=== PATIENT | male | born 1975 | race Caucasian/White ===

== ENCOUNTER 2025-01-17 00:39 | Day surgery (SDC) | payer BC, SELFPAY ==
[2025-01-01 14:59] VITALS: BMI 34.1
--- OUTSIDE RECORDS SUMMARY | 2025-01-17 00:42 | XMS_ITS | Clinical Summary ---
Author Organization [facility] Address [facility] [place] [address] Care Team Providers Care Wire Spiral Binder Name Role Phone Unavailable Primary Care Provider Unavailabl e Social History Tobacco Use Types Packs/Day Years Used Date Smoking Tobacco: Never Assessed Sex and Gender Information Value Date Recorded Sex Assigned at Not on file Legal Sex Male 9:55 PM [employer] Gender Identity Not on file Sexual Orientation Not on file Plan of Treatment Health Maintenance Due Date Last Done Comments Colorectal Cancer Screening Colonoscopy (10 Years) 1977 Annual Physical 1980 Hepatitis C 1995 DTaP, Tdap and Td Vaccines ( 1 - Tdap) 1996 Hepatitis B Vaccines (1 of 3 - 19+ 3-dose series) 1996 COVID-19 Vaccine (2023-2 5 season) 2024 Meningococcal B Vaccine Aged Out No l onger eligible based on patient's age to complete this topic Meningococcal Vaccine Aged Out No jody lorena eligible based on patient's age to complete this topic Pneumococcal Vaccine: Pediat rics (0 to 5 Years) and At-Risk Patients (6 to 49 Years) Aged Out No longer eligible b ased on patient's age to complete this topic RSV Immunizations Under 20 Months Aged Out No longer eligible based on patient's age to complete this topic
[2025-01-17 06:39] VITALS: BP 116/74; PULSE 62; RESP 20; TEMP 36.1; O2SAT 100
[2025-01-17 07:03] LABS: Glucose Point of Care 231 mg/dl (65-105)
[2025-01-17] MEDS: LACTATED RINGERS 1,000 ML 150 ML IV CONT (07:04)
--- NOTE | 2025-01-17 07:30 | WPDANESEPPF ---
Anes - Initial Pre Proc Eval Procedure: Operation Date: 01/17/25 08:00 Proposed Procedures p Screening Colonoscopy - Patricio Rolle MD Date/Time: 01/17/25 07:30 Surgeon: Patricio Rolle MD Pre Op Diagnosis: Screening Patient Data Age: 49 Gender: M Height: 1.93 m Weight: 123.4 kg Last Vital Signs Temp 97 F L 01/17/25 06:39 Pulse 62 01/17/25 06:39 Resp 20 01/17/25 06:39 BP 116/74 01/17/25 06:39 Pulse Ox 100 01/17/25 06:39 O2 Del Method Room Air 01/17/25 06:39 Allergies Allergy/AdvReac Type Severity Reaction Status Date / Time No Known Allergies Allergy Verified 01/17/25 06:37 Home Medications ?Medication ?Instructions ?Recorded ?Confirmed ?Type blood-glucose sensor (Dexcom G7 #3 ea 10/11/24 10/11/24 Rx Sensor device) insulin degludec 200 unit/mL (3 50 unit (0.25 mL) subcut DAILY #72 10/11/24 01/17/25 Rx mL) subcutaneous pen (Tresiba mL FlexTouch U-200 insulin) lisinopril 10 mg tablet See Rx Instructions .Route 10/11/24 01/17/25 Rx .COMPLEX #90 tabs pen needle, diabetic 31 gauge x #100 ea 10/11/24 10/11/24 Rx 5/16 (BD Ultra-Fine Short Pen Needle) ezetimibe 10 mg-simvastatin 40 mg 1 tablet PO DAILY #90 tabs 11/08/24 01/17/25 Rx tablet (Vytorin) glucagon 1 mg solution for 1 mg subcut Q20M PRN hypoglycemia 11/14/24 01/01/25 Rx injection (Glucagon Emergency Kit) #1 ea insulin aspart U-100 100 unit/mL 30 unit (0.3 mL) subcut TID 1 12/24/24 01/17/25 Rx (3 mL) subcutaneous pen month #27 mL semaglutide (weight loss) 1 mg/0.5 1 mg (0.5 mL) subcut WEEKLY #2 mL 01/02/25 01/17/25 Rx mL subcutaneous pen injector (Wegovy) albuterol sulfate 90 mcg/actuation See Rx Instructions .Route 01/06/25 01/17/25 Rx aerosol inhaler .COMPLEX #8.5 grams Laboratory Tests 01/17/25 06:54 POC Capillary Glucose 231 H mg/dl (65-105) Patient hx anesthesia problems: none Family hx anesthesia problems: none Results Review: All pre-operative results and documents have been reviewed as part of the pre-operative evaluation. [facility] Past Medical History Medical History (Updated 10/11/24 @ 13:08 by Marta Zapata PA-C) Uncomplicated asthma Hyperlipidemia, unspecified Type 1 diabetes mellitus without complications Essential (primary) hypertension Family History Family History Father Diabetes mellitus Mother No problems noted. Grandparent Emphysema lung Congestive heart failure Manic depressive disorder Heart disease Cancer Social History Social History Smoking status: Never smoker Smokeless tobacco user: chewing tobacco Alcohol intake: current Drinks per week: 8 Substance use: never Substance use type: does not use Lack of Transportation: No Lack of Food: Never True Current Housing: I Have Housing Concerned About Future Housing: No Difficulty Paying Gas/Electric Bills: No Difficulty Paying for Meds: No Currently Unemployed: No Education: Bachelor's Degree Difficulty w/ Childcare or Family Care: No Living arrangements: with family Occupation/Education: occupation Gender identity (if verbalized by the patient): Male Sexual Orientation (if Verbalized by the Patient): Straight or Heterosexual Spiritual care concerns: No Anes - Eval Final PreProcedure Day of Procedure 01/17/25 07:30 Patient weight: obese Heart: regular rate and rhythm Lungs: clear to auscultation Airway: Mallampati scale class II Neurological: alert and oriented Last oral intake: >/= 8 hours ASA classification: III Emergent: no Anesthetic plan: proceed Anesthesia type and monitoring: general GIVS and standard monitoring Results Review: All pre-operative results and documents have been reviewed as part of the pre-operative evaluation. Informed Consent: The patient's anesthetic plan and its attendant risks and benefits were discussed with the patient/family/POA. Questions were solicited and answers provided to the satisfaction of the patient/family/POA.
--- NOTE | 2025-01-17 07:47 | PM.HPGS ---
History of Present Illness History of Present Illness Consent: Risks, benefits, and alternatives have been discussed and questions answered. Patient agrees to proceed with procedure. Chief complaint: Screening Narrative: Av Cueva is a 49 year old male here for screening colonoscopy, had one about 12 years ago Review of Systems Review of Systems: All systems reviewed & are unremarkable except as noted in HPI and below PMFSH Past Medical History Medical History (Updated 01/17/25 @ 07:47 by Patricio Rolle MD) Colon cancer screening Uncomplicated asthma Hyperlipidemia, unspecified Type 1 diabetes mellitus without complications Essential (primary) hypertension Family History Family History Father Diabetes mellitus Mother No problems noted. Grandparent Emphysema lung Congestive heart failure Manic depressive disorder Heart disease Cancer Social History Social History Smoking status: Never smoker Smokeless tobacco user: chewing tobacco Alcohol intake: current Drinks per week: 8 Substance use: never Substance use type: does not use Lack of Transportation: No Lack of Food: Never True Current Housing: I Have Housing Concerned About Future Housing: No Difficulty Paying Gas/Electric Bills: No Difficulty Paying for Meds: No Currently Unemployed: No Education: Bachelor's Degree Difficulty w/ Childcare or Family Care: No Living arrangements: with family Occupation/Education: occupation Gender identity (if verbalized by the patient): Male Sexual Orientation (if Verbalized by the Patient): Straight or Heterosexual Spiritual care concerns: No Meds Home Medications and Allergies Home Medications ?Medication ?Instructions ?Recorded ?Confirmed ?Type blood-glucose sensor (Dexcom G7 #3 ea 10/11/24 10/11/24 Rx Sensor device) insulin degludec 200 unit/mL (3 50 unit (0.25 mL) subcut DAILY #72 10/11/24 01/17/25 Rx mL) subcutaneous pen (Tresiba mL FlexTouch U-200 insulin) lisinopril 10 mg tablet See Rx Instructions .Route 10/11/24 01/17/25 Rx .COMPLEX #90 tabs pen needle, diabetic 31 gauge x #100 ea 10/11/24 10/11/24 Rx 5/16 (BD Ultra-Fine Short Pen Needle) ezetimibe 10 mg-simvastatin 40 mg 1 tablet PO DAILY #90 tabs 11/08/24 01/17/25 Rx tablet (Vytorin) glucagon 1 mg solution for 1 mg subcut Q20M PRN hypoglycemia 11/14/24 01/01/25 Rx injection (Glucagon Emergency Kit) #1 ea insulin aspart U-100 100 unit/mL 30 unit (0.3 mL) subcut TID 1 12/24/24 01/17/25 Rx (3 mL) subcutaneous pen month #27 mL semaglutide (weight loss) 1 mg/0.5 1 mg (0.5 mL) subcut WEEKLY #2 mL 01/02/25 01/17/25 Rx mL subcutaneous pen injector (Wegovy) albuterol sulfate 90 mcg/actuation See Rx Instructions .Route 01/06/25 01/17/25 Rx aerosol inhaler .COMPLEX #8.5 grams Allergies Allergy/AdvReac Type Severity Reaction Status Date / Time No Known Allergies Allergy Verified 01/17/25 06:37 Vital Signs Vital Signs - 24 hr 01/17/25 06:39 Temperature 97 F L Pulse Rate 62 Respiratory Rate 20 Blood Pressure 116/74 Pulse Oximetry 100 Oxygen Delivery Room Air Exam Const: General: comfortable and no acute distress HENMT: Face/Nose/Sinus: Normal nares present Eyes: General: appearance normal, both eyes and all related structures Neck: Neck: no JVD Resp: Auscultation: clear to auscultation bilaterally Cardio: Rate: regular rate Rhythm: regular rhythm GI: Inspection: non-distended GI Palp: Yes Soft to palpation Skin: General skin exam: normal color Neuro: General: gait normal Speech: normal speech Extrem: General: normal to inspection Psych: Mental Status: mental status grossly normal Assessment and Plan Assessment and plan (1) Colon cancer screening: Code(s): Z12.11 - Encounter for screening for malignant neoplasm of colon Status: Acute Assessment and Plan: colonoscopy
[2025-01-17 08:05] VITALS: BP 100/69; PULSE 72; RESP 18; O2SAT 96
[2025-01-17 08:15] VITALS: BP 107/68; PULSE 63; RESP 17; O2SAT 99
[2025-01-17 08:25] VITALS: BP 108/70; PULSE 61; RESP 18; O2SAT 99
--- NOTE | 2025-01-17 08:32 | SUR.PHASEII ---
Pt blood sugar 259 per pt Dexcom.
== END 2025-01-17 08:31 | disposition home or self-care (01) ==
PROVIDERS: PCP Family Medicine; Visit Provider Internal Medicine Gastroenterology
PROC: 0DJD8ZZ Inspection of Lower Intestinal Tract, Via Natural or Artificial Opening Endoscopic (ICD-10-PCS; CPT 45378; principal; 2025-01-17 08:00)
DX: Z12.11 Encounter for screening for malignant neoplasm of colon (principal); D12.2 Benign neoplasm of ascending colon; E78.5 Hyperlipidemia, unspecified; I10 Essential (primary) hypertension; E10.9 Type 1 diabetes mellitus without complications; J45.909 Unspecified asthma, uncomplicated; F17.220 Nicotine dependence, chewing tobacco, uncomplicated; E66.9 Obesity, unspecified; Z68.33 Body mass index [BMI] 33.0-33.9, adult; Z79.4 Long term (current) use of insulin; Z79.85 Long-term (current) use of injectable non-insulin antidiabetic drugs; Z79.51 Long term (current) use of inhaled steroids; Z80.9 Family history of malignant neoplasm, unspecified; Z82.49 Family history of ischemic heart disease and other diseases of the circulatory system
CPT/HCPCS: 45385; 82948; 88305; J2003; J2704; J7120